=== PATIENT | female | born 1990 | race Caucasian/White ===

== ENCOUNTER 2020-10-31 22:19 | Emergency (ER) | payer BC ==
[~2020-10-31] VITALS: Ht 162.6 cm; Wt 68.0 kg
[2020-10-31 22:20] VITALS: BP 129/74
== END 2020-10-31 23:25 | disposition home or self-care (01) ==
LOC: ER 22:25
DX: R06.02 Shortness of breath (principal); F41.9 Anxiety disorder, unspecified; Z02.89 Encounter for other administrative examinations